=== PATIENT | female | born 1950 | race Caucasian/White ===

== ENCOUNTER → 2017-02-21 | Outpatient (CLI) | payer MEDICARE, OTHER ==
[2016-03-08 08:31] VITALS: BP 120/57
[~2017-02-21] MED LIST: ACET500T33 PO; ACET650T10 PO; ASPI81TA2 PO; ATOR10TA PO; ATOR10TA60 PO; BIOT1CAP3 PO; BUME1TAB PO; CARV12.52 PO; CARV6.25 PO; DOCU100C5 PO; DOXY100T PO; FLAX10003 PO; GLYB5TAB3 PO; HYDR-2678 PO; LINA5TAB PO; LISI2.5T PO; METF10002 PO; METF500T4 PO; MULT-658 PO; POTA10TA12 PO; RANI150T6 PO; SENN1TAB21 PO
--- NOTE | 2017-02-22 08:41 | RAD ---
EXAM: DIGITAL SCREEN BILAT W/CAD. HISTORY: Screening. Since the comparison study, patient has had a pacemaker inserted and loss lost 60 pounds. COMPARISON: 05/24/2015 and 05/06/2014. FINDINGS: Digital mammography was performed. Computer-aided detection (CAD) was utilized. The breast parenchyma is primarily fatty (tissue density A). No dominant suspicious mass, suspicious microcalcifications, or architectural distortion is identified. Both breasts demonstrate scattered, benign-appearing calcifications, primarily of vascular type. IMPRESSION: No mammographic evidence of malignancy. BI-RADS CATEGORY: 2 BENIGN FINDING(S) RECOMMENDED FOLLOW-UP: 12M 12 MONTH FOLLOW-UP PQRS compliance statement: Patient information was entered into a reminder system with a target due date for the next mammogram. Mammography is a sensitive method for finding small breast cancers, but it does not detect them all and is not a substitute for careful clinical examination. A negative mammogram does not negate a clinically suspicious finding and should not result in delay in biopsying a clinically suspicious abnormality. "Our facility is accredited by the [employer] Mammography Program."
== END | disposition home or self-care (01) ==
LOC: MAMMO 14:11
PROVIDERS: ATTEND Internal Medicine
DX: Z12.31 Encounter for screening mammogram for malignant neoplasm of breast (principal)
CPT/HCPCS: G0202; 77067

== ENCOUNTER 2017-04-22 12:54 | Emergency (ER) | payer MEDICARE, OTHER ==
[~2017-04-22] VITALS: Ht 165.1 cm; Wt 89.4 kg
[~2017-04-22 12:54] MED LIST changes: +ASPI-630 PO; -ASPI81TA2 PO; +DOCU100C28 PO; -DOCU100C5 PO; -LINA5TAB PO; +LINA5TAB4 PO; +METF-620 PO; -METF10002 PO
[2017-04-22 13:15] VITALS: BP 116/57
--- NOTE | 2017-04-22 13:50 | RAD ---
Indication: Pain in the lateral left foot. Time of exam 1334 hours. 3 views of the left foot were obtained. The metatarsals appear intact. No periosteal reaction or stress reaction is seen. The phalanges are intact. Midfoot and hindfoot are unremarkable apart from a large plantar calcaneal spur. Impression: No acute bony abnormality is detected.
[2017-04-22] MEDS ORDERED: DICLOFENAC SODIUM 1% TOPICAL GEL 100GM TUBE. TP STA (13:56)
--- NOTE | 2017-04-22 14:03 | PHYS DOC ---
Past Medical History Past Medical History: Diabetes-Type II, GERD, High Cholesterol, Heart Disease, Hypertension Past Surgical History: Coronary Bypass Surgery, Knee Replacement, Pacemaker, Tonsillectomy, Other Additional Past Surgical Histo: BX KNEE REPLACEMENT, LUNG, STOMACH "STAPLED", BX CATARACTS Alcohol Use: None Drug Use: None Adult General Chief Complaint Chief Complaint: FOOT INJURY PAIN HPI HPI Patient is a 66 year old female with a history of diabetes type 2, hypertension , high cholesterol, CAD, who presents today with mild diffuse sharp right foot pain that began 3 days ago. Patient denies any known injury. She states she also has noticed some swelling on the foot. Patient states the pain is worse when she is ambulating. She has tried Tylenol for arthritis with no relief. Review of Systems Review of Systems Constitutional: Denies fever or chills [] Eyes: Denies change in visual acuity, redness, or eye pain [] Musculoskeletal: Right foot pain Integument: Denies rash or skin lesions [] Neurologic: Denies headache, focal weakness or sensory changes [] Endocrine: Denies polyuria or polydipsia [] Current Medications Current Medications Current Medications Medications (Trade) Dose Ordered Sig/Pati Start Time Stop Time Status Last Admin Dose Admin Diclofenac Sodium (Voltaren) 1 ivory 1X STAT 04/22/17 13:56 04/22/17 13:59 DC Allergies Allergies Allergies Coded Allergies Type Severity Reaction Last Updated Verified Cephalosporins Allergy Intermediate 03/02/16 Yes Penicillins Allergy Intermediate 03/02/16 Yes ampicillin Allergy Intermediate 03/02/16 Yes clindamycin Allergy Intermediate 03/02/16 Yes furosemide Allergy Intermediate 03/02/16 Yes sitagliptin Allergy Intermediate 03/02/16 Yes codeine Adverse Reaction Intermediate Hallucinations 03/02/16 Yes Physical Exam Physical Exam Constitutional: Well developed, well nourished, no acute distress, non-toxic appearance. [] HENT: Normocephalic, atraumatic, bilateral external ears normal, oropharynx moist, no oral exudates, nose normal. [] Skin: Warm, dry, no erythema, no rash. [] Back: No tenderness, no CVA tenderness. [] Extremities: Right foot with small amount of diffuse soft tissue swelling. No ecchymosis noted. No tenderness on palpation of the base of the fifth metatarsal of the navicular bone of the right foot. Slight tenderness elicited on palpation along the third and fourth metatarsals. Full range of motion to the right foot and toes. +2 right pedal pulse. Cap refill less than 2 seconds the right lower extremity. Sensation intact to the right lower extremity. Neurologic: Alert and oriented X 3, normal motor function, normal sensory function, no focal deficits noted. [] Psychologic: Affect normal, judgement normal, mood normal. [] Current Patient Data Vital Signs Vital Signs Date Time Temp Pulse Resp B/P (MAP) Pulse Ox O2 Delivery O2 Flow Rate FiO2 04/22/17 13:15 97.7 87 18 99 Room Air 97.7 EKG EKG [] Radiology/Procedures Radiology/Procedures [] Course & Med Decision Making Course & Med Decision Making Pertinent Labs and Imaging studies reviewed. (See chart for details) Patient is in the ED with right foot pain no known injury. Right foot x-rays interpreted by radiologist are negative for any acute findings but noted for large bone spur. Recommended trying to pad the heel aspect of her shoes to reduce pressure on the heel. Recommended Ricky wrap to the foot which was applied in the ED by the polytechnic registrar, neurovascular exam done by me is normal, cap refill less than 2 seconds. Discharged with the Voltaren cream. Follow-up with orthopedic doctor in the course of this week. Dragon Disclaimer Dragon Disclaimer This electronic medical record was generated, in whole or in part, using a voice recognition dictation system. Departure Departure Impression: Primary Impression: Foot pain, right Additional Impression: Bone spur of foot Disposition: 01 HOME, SELF-CARE Condition: STABLE Referrals: [facility]EL[facility] MD (PCP) DAJUAN SYLVESTER MD Follow-up in one week Patient Instructions: Musculoskeletal Pain Additional Instructions: You were seen for right foot pain with no known injury. X-ray of the right foot was noted for large bone spur on the heel. Follow-up with the provided orthopedic doctor or your own doctor in one week. Try and pad the heel aspect of the foot to reduce pressure on the heel and use the Ricky wrap provided as tolerated . Ice and elevate the foot. Scripts Diclofenac Sodium (VOLTAREN) 100 Gm Gel..gram. 1 GM TP QID, #100 GM 2 Refills Prov: ABBIE VERONICA APRN 04/22/17 Problem Qualifiers ABBIE VERONICA APRN Apr 22, 2017 14:03
[2017-04-22] MEDS ORDERED: DICL100G18 TP (14:07)
== END 2017-04-22 14:16 | disposition home or self-care (01) ==
LOC: ER 12:54
DX: M77.9 Enthesopathy, unspecified (principal); K21.9 Gastro-esophageal reflux disease without esophagitis; E78.00 Pure hypercholesterolemia, unspecified; I11.9 Hypertensive heart disease without heart failure; E11.36 Type 2 diabetes mellitus with diabetic cataract; Z95.0 Presence of cardiac pacemaker; Z95.1 Presence of aortocoronary bypass graft; Z96.659 Presence of unspecified artificial knee joint; Z88.0 Allergy status to penicillin; Z88.1 Allergy status to other antibiotic agents; Z88.5 Allergy status to narcotic agent; Z88.8 Allergy status to other drugs, medicaments and biological substances; Z98.42 Cataract extraction status, left eye; Z98.41 Cataract extraction status, right eye
CPT/HCPCS: 73630; 99284

== ENCOUNTER → 2017-04-23 | Outpatient (CLI) | payer MEDICARE, OTHER ==
[2016-03-08 08:31] VITALS: BP_DIAS 57
[2017-04-22 13:15] VITALS: BP_SYST 116
[~2017-04-23] MED LIST changes: -ASPI-630 PO; +ASPI81TA2 PO; +DICL100G7 TP; -DOCU100C28 PO; +DOCU100C5 PO
--- NOTE | 2017-04-23 11:15 | CARD ---
APPROVED REPORT EXAM: Two-dimensional and M-mode echocardiogram with Doppler and color Doppler. Other Information Quality : GoodHR: 80bpm Rhythm : NSR INDICATION Chronic systolic CHF 2D DIMENSIONS RVDd2.8 (2.9-3.5cm)Left Atrium(2D)3.9 (1.6-4.0cm) IVSd0.7 (0.7-1.1cm)Aortic Root(2D)3.0 (2.0-3.7cm) LVDd5.4 (3.9-5.9cm)LVOT Diameter2.4 (1.8-2.4cm) PWd0.8 (0.7-1.1cm)LVDs5.1 (2.5-4.0cm) FS (%) 6.1 %SV19.4 ml LVEF(%)13.5 (>50%) Aortic Valve AoV Peak Magdy.103.9cm/sAoV VTI23.8cm AO Peak GR.4.3mmHgLVOT Peak Magdy.94.4cm/s AO Mean GR.3mmHgAVA (VMAX)4.21cm2 Mitral Valve MV E Umdqtktz286.2cm/sMV E Peak Gr.7mmHg MV DECEL [id number] A Gdzaxqwp99.4cm/s MV E Mean Gr.3mmHgE/A Ratio1.6 MV A [id number] Tricuspid Valve TR P. [id number]/sTR Peak Gr.35mmHg Pulmonary Vein S1 Sulgqiky34.6cm/sD2 Vanyqgor15.2cm/s LEFT VENTRICLE The left ventricle is normal size. There is normal left ventricular wall thickness. Left ventricle sy stolic function is severely impaired. The Ejection Fraction is 10-15%. There is severe global hypokin esis of the left ventricle. Transmitral Doppler flow pattern is Grade IV-fixed restrictive diastolic dysfunction. No left ventricle thrombus noted on this study. RIGHT VENTRICLE The right ventricle is normal size. There is normal right ventricular wall thickness. The right ventr icular systolic function is normal. There is a pacemaker lead in the right ventricle. ATRIA The left atrium size is normal. The right atrium size is normal. The interatrial septum is intact wit h no evidence for an atrial septal defect or patent foramen ovale as noted on 2-D or Doppler imaging. AORTIC VALVE The aortic valve is not well visualized but appears to open well. The aortic valve is moderately scle rotic. Doppler and Color Flow revealed no significant aortic regurgitation. There is no significant a ortic valvular stenosis. MITRAL VALVE Mitral annular calcification is moderate. The mitral valve leaflets are calcified. There is no eviden ce of mitral valve prolapse. There is no mitral valve stenosis. Doppler and Color Flow revealed mild mitral regurgitation. TRICUSPID VALVE Doppler and Color Flow revealed moderate tricuspid regurgitation. The pulmonary artery systolic press ure is estimated at 43 mmHg. There is mild pulmonary hypertension. PULMONIC VALVE The pulmonic valve is not visualized, unable to assess. GREAT VESSELS The aortic root is normal in size. The decending aorta and pulmonary artery were not seen, unable to assess. The IVC is normal in size but does not collapse with inspiration. PERICARDIAL EFFUSION There is no evidence of significant pericardial effusion. Critical Notification Critical Value: No <Conclusion> Left ventricle systolic function is severely impaired. The Ejection Fraction is 10-15%. There is severe global hypokinesis of the left ventricle. Transmitral Doppler flow pattern is Grade IV-fixed restrictive diastolic dysfunction. There is a pacemaker lead in the right ventricle. Doppler and Color Flow revealed moderate tricuspid regurgitation. The pulmonary artery systolic press ure is estimated at 43 mmHg. There is mild pulmonary hypertension.
== END | disposition home or self-care (01) ==
LOC: ECHO 08:56
PROVIDERS: ATTEND Internal Medicine Cardiovascular Disease
DX: I50.22 Chronic systolic (congestive) heart failure (principal); I27.2 Other secondary pulmonary hypertension; I08.1 Rheumatic disorders of both mitral and tricuspid valves
CPT/HCPCS: 93306